=== PATIENT | male | born 2000 | race American Indian/Alaskan Native ===

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

== ENCOUNTER 2019-06-21 17:58 | Emergency (ER) | payer SELFPAY ==
--- NOTE | 2019-06-21 18:49 | Emergency Department Report ---
Blank Doc - Documentation Documentation: 18-year-old male that presents with right eye pain and blurry vision. Stated has foreign body sensation. This initial assessment/diagnostic orders/clinical plan/treatment(s) is/are subject to change based on patient's health status, clinical progression and re- assessment by fellow clinical providers in the ED. Further treatment and workup at subsequent clinical providers discretion. Patient/guardians urged not to elope from the ED as their condition may be serious if not clinically assessed and managed. Initial orders include: 1- Patient sent to [facility] for further evaluation and treatment 2- eugene lamp 3- visual test
[2019-06-22] MEDS ORDERED: BALANCED SALT IRRIG 1 DROPS, TETRACAINE 0.5% 1 DROPS, FLUORESCEIN 1 MG OD ONE (01:26)
[2019-06-22] MEDS ORDERED: FLUORESCEIN 1 MG STRIP OP ONE (01:32)
[2019-06-22] MEDS ORDERED: TETRACAINE 0.5% OPHTH SOLN 4ML ONE (01:32)
[2019-06-22] MEDS ORDERED: BALANCED SALT IRRIG (BSS) OPHTH SOLN 15 ML ONE (01:32)
[2019-06-22 02:00] LABS: Bilirubin,Urine NEG (Negative); Blood,Urine NEG (Negative); Color,Urine Yellow (Yellow); Mucus,Urine FEW /HPF; Protein,Urine <15 mg/dL mg/dL (Negative)
[2019-06-22] MEDS ORDERED: AZITHROMYCIN 250 MG TAB PO ONE (02:19)
[2019-06-22] MEDS ORDERED: LIDOCAINE-MPF (1%) 10 MG/1 ML VIAL 5 ML INFILTRATI ONE ×2 (02:19→02:31)
--- NOTE | 2019-06-22 02:43 | Emergency Department Report ---
ED Eye Problem HPI - General Chief complaint: Eye Problems Stated complaint: STD CHECK Time Seen by Provider: 06/21/19 18:48 Source: patient Mode of arrival: Ambulatory Limitations: No Limitations - History of Present Illness Initial comments: 18-year-old male with no significant past medical history presents to hospital complaining of right eye irritation, pain, and dysuria for the last 3 weeks. Patient denies fever, or penile discharge. Discharged from right eye is clear. Patient does not wear contact lenses or glasses. Patient has had unprotected sex with his girlfriend and she was diagnosed with chlamydia. He has had pink color urine output. - Related Data Previous Rx's Medication Instructions Recorded Last Taken Type Erythromycin [Erythromycin Ophth 1 gm OD QID 7 Days tube 06/22/19 Unknown Rx Oint] Ibuprofen [Motrin] 800 mg PO Q8HR PRN #30 tablet 06/22/19 Unknown Rx Allergies Allergy/AdvReac Type Severity Reaction Status Date / Time No Known Allergies Allergy Unverified 08/18/17 15:59 ED Review of Systems ROS: Stated complaint: STD CHECK Other details as noted in HPI Comment: All other systems reviewed and negative ED Past Medical Hx - Past Medical History Previous Medical History?: No - Surgical History Past Surgical History?: No - Social History Smoking Status: Never Smoker Substance Use Type: None - Medications Home Medications: Home Medications Medication Instructions Recorded Confirmed Last Taken Type Erythromycin [Erythromycin Ophth 1 gm OD QID 7 Days tube 06/22/19 Unknown Rx Oint] Ibuprofen [Motrin] 800 mg PO Q8HR PRN #30 tablet 06/22/19 Unknown Rx ED Physical Exam - General Limitations: No Limitations - Other Other exam information: Gen.: No acute distress Head: Atraumatic Eyes: Left eye conjunctival injection/redness. Pupil equal reactive to light, mild photophobia. Right eye visual acuity 20/100, left eye visual acuity 20/20, 20/70 both. No fluorescein uptake of the right ENT: Moist mucous membranes Neck: Normal appearance, no posterior midline tenderness, no meningismus Chest: Clear to auscultation bilaterally Cardiovascular: Regular rate and rhythm Abdomen: Normal appearance, soft, nontender, no rebound or guarding, normal bowel sounds : No penile discharge, no testicular or epididymal tenderness. No penile lesions Back: Normal appearance, nontender Extremity: Full range of motion, normal appearance Neuro: Alert, clear speech, no focal motor or sensory deficit Psychiatric: Appropriate Skin: No rash ED Course Vital Signs 06/21/19 06/21/19 06/21/19 18:28 18:30 21:45 Temperature 98.3 F 98.2 F Pulse Rate 64 67 Respiratory 18 18 16 Rate Blood Pressure 131/86 Blood Pressure 134/74 [Right] O2 Sat by Pulse 100 Oximetry ED Medical Decision Making - Lab Data Lab Results 06/22/19 Range/Units 01:33 Urine Color Yellow (Yellow) Urine Turbidity Clear (Clear) Urine pH 6.0 (5.0-7.0) Ur Specific [place] 1.016 (1.003-1.030) Urine Protein <15 mg/dl (Negative) mg/dL Urine Glucose (UA) Neg (Negative) mg/dL Urine Ketones Tr (Negative) mg/dL Urine Blood Neg (Negative) Urine Nitrite Neg (Negative) Urine Bilirubin Neg (Negative) Urine Urobilinogen 4.0 (<2.0) mg/dL Ur Leukocyte Esterase Tr (Negative) Urine WBC (Auto) 9.0 H (0.0-6.0) /HPF Urine RBC (Auto) 4.0 (0.0-6.0) /HPF Urine Mucus Few /HPF - Medical Decision Making I suspect Chlamydia conjunctivitis as well as chlamydia urethritis based on patient's symptoms and his girlfriend's recent diagnosis of chlamydia. Patient treated with IM Rocephin 1 g and azithromycin by mouth 1 g. He will be discharged on erythromycin ointment and will be encouraged to follow up with ophthalmology since he has had decreased vision for the last 3 weeks.. - Differential Diagnosis UTI, STD, urethritis, conjunctivitis, Chlamydia/gonorrhea conjunctivitis Critical Care Time: No Critical care attestation.: If time is entered above; I have spent that time in minutes in the direct care of this critically ill patient, excluding procedure time. ED Disposition Clinical Impression: Conjunctivitis, right eye, Urethritis, STD (male) Disposition: -01 TO HOME OR SELFCARE Is pt being admited?: No Does the pt Need Aspirin: No Instructions: Chlamydia Infection (ED), Gonococcal Urethritis (ED), Conjunctivitis (ED) Additional Instructions: Take the medication as prescribed. Follow-up with your doctor or with the doctor/clinic provided. Return if symptoms worsen as indicated by your discharge instructions. He was treated today for gonorrhea and chlamydia. I suspected to may have chlamydia infection in your penis as well as your right eye. Your gonorrhea and chlamydia tests were sent. These take about 2-3 days to result. You may obtain results by going to medical records with photo ID. Your doctor may also requested results from his or her office after you provide written permission. It is very important to follow with critical care unit manager since your vision has been affected. Prescriptions: Erythromycin [Erythromycin Ophth Oint] 1 gm OD QID 7 Days tube Ibuprofen [Motrin] 800 mg PO Q8HR PRN #30 tablet PRN Reason: Pain , Severe (7-10) Referrals: QUIRINO MIRZA MD [Staff Physician] - 3-5 Days (Ophthalmology) NANCY ROSAS MD [Staff Physician] - 3-5 Days (Ophthalmology) BERNICE LESTER MD [Staff Physician] - 3-5 Days (Ophthalmology) [facility] [Provider Group] - 3-5 Days (Primary care clinic) Forms: STI Treatment and Prevention Time of Disposition: 03:43
[2019-06-22 05:01] VITALS: BP 120/77
== END 2019-06-22 04:45 | disposition home or self-care (01) ==
LOC: ED 17:58
DX: H10.9 Unspecified conjunctivitis (principal); N34.2 Other urethritis; A64 Unspecified sexually transmitted disease; Z79.899 Other long term (current) drug therapy
CPT/HCPCS: 81001; 87086; 87591; 96372; 99284; J0696

== ENCOUNTER 2019-10-02 19:41 | Emergency (ER) | payer SELFPAY ==
--- NOTE | 2019-10-02 21:39 | Event Note ---
ED Screening Note Date of service: 10/02/19 Time: 21:37 ED Screening Note: c/o left ankle pain from injury at work x today This initial assessment/diagnostic orders/clinical plan/treatment(s) is/are subject to change based on patients health status, clinical progression and re- assessment by fellow clinical providers in the ED. Further treatment and workup at subsequent clinical providers discretion. Patient/guardian urged not to elope from the ED as their condition may be serious if not clinically assessed and managed. Initial orders include: xr
--- NOTE | 2019-10-02 22:37 | XRay Report ---
LEFT ANKLE 3 VIEWS INDICATION: MAIN: pain after injury. COMPARISON: No relevant prior imaging study available. FINDINGS: No acute, displaced fracture or dislocation is seen. There is mild soft tissue swelling. No foreign b odies. IMPRESSION: 1. No acute fracture. Signer Name: Nikko Lepe MD Signed: 10/02/2019 10:32 PM Workstation Name: [id number]
--- NOTE | 2019-10-03 01:47 | Emergency Department Report ---
ED Extremity Problem HPI - General Chief complaint: Extremity Injury, Lower Stated complaint: LT ANKLE SWOLLEN W/PAIN,WORK INJURY Time Seen by Provider: 10/02/19 21:37 Source: patient Mode of arrival: Ambulatory Limitations: No Limitations - History of Present Illness Initial comments: 19-year-old male presents to the ER today complaining of left ankle pain. 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 He reports pain and swelling to the left ankle. He states that he tried Tylenol and ibuprofen with minimal relief of his pain. Pain is worse with range of motion and ambulation. He reports no other symptoms at this time. MD Complaint: joint swelling, joint paint -: Sudden (yesterday) Location: lower extremity (Left ankle ) - Related Data Previous Rx's Medication Instructions Recorded Last Taken Type Erythromycin [Erythromycin Ophth 1 gm OD QID 7 Days tube 06/22/19 Unknown Rx Oint] Ibuprofen [Motrin] 800 mg PO Q8HR PRN #30 tablet 06/22/19 Unknown Rx Ketorolac [Toradol] 10 mg PO Q6H PRN #20 tablet 10/03/19 Unknown Rx Allergies Allergy/AdvReac Type Severity Reaction Status Date / Time No Known Allergies Allergy Unverified 08/18/17 15:59 ED Review of Systems ROS: Stated complaint: LT ANKLE SWOLLEN W/PAIN,WORK INJURY Other details as noted in HPI Comment: All other systems reviewed and negative Musculoskeletal: joint swelling, arthralgia ED Past Medical Hx - Past Medical History Previous Medical History?: No - Surgical History Past Surgical History?: No - Social History Smoking Status: Current Every Day Smoker Substance Use Type: Alcohol - Medications Home Medications: Home Medications Medication Instructions Recorded Confirmed Last Taken Type Erythromycin [Erythromycin Ophth 1 gm OD QID 7 Days tube 06/22/19 Unknown Rx Oint] Ibuprofen [Motrin] 800 mg PO Q8HR PRN #30 tablet 06/22/19 Unknown Rx Ketorolac [Toradol] 10 mg PO Q6H PRN #20 tablet 10/03/19 Unknown Rx ED Physical Exam - General Limitations: No Limitations General appearance: alert, in no apparent distress - Head Head exam: Present: atraumatic, normocephalic, normal inspection - Eye Eye exam: Present: normal appearance, PERRL, EOMI Pupils: Present: normal accommodation - Respiratory Respiratory exam: Absent: respiratory distress - Cardiovascular Cardiovascular Exam: Present: regular rate - Extremities Exam Extremities exam: Present: other (moderate tenderness to palpation to the medial and lateral aspect of the left ankle, but there is moderate swelling with some mild bruising noted to the lateral aspect of the left ankle. Range of motion of the ankle is reduced due to pain. No acute deformity. Dorsalis presents. Normal. Refills normal. No Achilles tendon tenderness.) ED Course Vital Signs 10/02/19 20:23 Temperature 98.9 F Pulse Rate 77 Respiratory 18 Rate Blood Pressure 119/77 O2 Sat by Pulse 100 Oximetry ED Medical Decision Making - Radiology Data Radiology results: report reviewed Patient: RAISSA QUINTANA MR#: [id number] : 2000 Acct:[id number] Age/Sex: 19 / M ADM Date: 10/02/19 Loc: ED Attending Dr: Ordering Physician: DESTINEY VERDE Date of Service: 10/02/19 Procedure(s): XR ankle 3+V LT Accession Number(s): [id number] cc: DESTINEY VERDE Fluoro Time In Minutes: LEFT ANKLE 3 VIEWS INDICATION: MAIN: pain after injury. COMPARISON: No relevant prior imaging study available. FINDINGS: No acute, displaced fracture or dislocation is seen. There is mild soft tissue swelling. No foreign bodies. IMPRESSION: 1. No acute f racture. Signer Name: Nikko Lepe MD Signed: 10/02/2019 10:32 PM Workstation Name: [id number] Transcribed By: SW Dictated By: Nikko Lepe MD Electronically Authenticated By: Nikko Lepe MD Signed Date/Time: 10/02/192231 DD/ 31 TD/TT: Critical care attestation.: If time is entered above; I have spent that time in minutes in the direct care of this critically ill patient, excluding procedure time. ED Disposition Clinical Impression: Ankle contusion Disposition: - TO HOME OR SELFCARE Is pt being admited?: No Does the pt Need Aspirin: No Condition: Stable Instructions: Contusion in Adults (ED) Additional Instructions: rest, ice, and elevated leg as often as possible for the next 2-3 days; Take medications as prescribed. Follow up with Ortho in 1 week if not better. Prescriptions: Ketorolac [Toradol] 10 mg PO Q6H PRN #20 tablet PRN Reason: Pain Referrals: NONA DIAZ MD [Staff Physician] - 7-10 days Forms: Work/School Release Form Time of Disposition: 01:49
[2019-10-03 02:03] VITALS: BP 120/78
== END 2019-10-03 02:03 | disposition home or self-care (01) ==
LOC: ED 19:41
DX: S90.02XA Contusion of left ankle, initial encounter (principal); F17.200 Nicotine dependence, unspecified, uncomplicated; X58.XXXA Exposure to other specified factors, initial encounter; Y93.89 Activity, other specified; Y92.89 Other specified places as the place of occurrence of the external cause; Y99.8 Other external cause status
CPT/HCPCS: 99283